=== PATIENT | female | born 1990 | race Caucasian/White ===

== ENCOUNTER 2016-08-16 19:18 | Emergency (ER) | payer BC, OTHER ==
[~2016-08-16] VITALS: Ht 172.7 cm; Wt 136.1 kg
--- NOTE | 2016-08-16 20:03 | ED Fall/Injury ---
General Chief Complaint: Trauma-Non Activation Stated Complaint: FALL/LEFT ARM INJURY Nursing Triage Note: FALL DOWN APPROX. 3 STEPS, C/O LEFT SHOULDER/UPPER ARM PAIN. DENIES OTHER INJURY/LOC. Source: patient Exam Limitations: no limitations History of Present Illness Time seen by provider: 20:03 Initial Comments 25-year-old female patient presents to the emergency department with complaints of left shoulder and left proximal arm pain after slipping on the ice and falling down 3 stairs. reports the left arm caught on a step above/behind her. Also c/o left arm tingling and discoloration. Denies hitting her head or loss of consciousness. Location Injury Occurred: WORK Occurred: this evening Injuries/Pain Location: upper extremity Context: slipped Loss of Consciousness: no loss of consciousness Modifying Factors: Improves With Immobilization, Worse With Movement Allergies and Home Medications Allergies Coded Allergies: No Known Drug Allergies (Unverified , 08/16/16) Home Medications Tramadol HCl 50 Mg Tablet #30 1-2 TAB PO Q4H PRN PRN PAIN Prescribed by: ARTI PAZ on 08/16/160 Constitutional: no symptoms reported Eyes: No Symptoms Reported Ears, Nose, Mouth, Throat: no symptoms reported Respiratory: No cough, No short of breath Cardiovascular: No chest pain, No syncope Gastrointestinal: no symptoms reported Genitourinary: no symptoms reported Musculoskeletal: see HPINo back pain, joint pain joint swelling muscle painNo neck pain Skin: see HPI change in colorNo lumps Psychiatric/Neurological: See HPIDenies Headache, Denies Numbness, Paresthesia Tingling All Other Systems Reviewed Negative Unless Noted: Yes (Negative excepted noted.) Past Qazmiej-Zxulks-Dkfkes Hx Patient Social History Alcohol Use: Denies Use Recreational Drug Use: No Smoking Status: Never a Smoker Recent Foreign Travel: No Contact w/Someone Who Travel: No Recent Infectious Disease Expo: No Recent Hopitalizations: No Physical Abuse Screen: No Sexual Abuse: No Immunizations Up To Date Tetanus Booster (TDap): Less than 5yrs PED Vaccines UTD: Yes Seasonal Allergies Seasonal Allergies: No Surgeries HX Surgeries: No Respiratory Hx Respiratory Disorders: No Cardiovascular Hx Cardiac Disorders: No Neurological Hx Neurological Disorders: No Reproductive System : No Hx Reproductive Disorders: No Genitourinary Hx Genitourinary Disorders: No Gastrointestinal Hx Gastrointestinal Disorders: No Musculoskeletal Hx Musculoskeletal Disorders: No Endocrine Hx Endocrine Disorders: No HEENT HX ENT Disorders: No Cancer Hx Cancer: No Psychosocial Hx Psychiatric Problems: No Integumentary HX Skin/Integumentary Disorder: No Blood Transfusions Hx Blood Disorders: No Adverse Reaction to a Blood Tr: No Reviewed Nursing Assessment Reviewed/Agree w Nursing PMH: Yes Family Medical History Significant Family History: No Pertinent Family Hx Physical Exam Vital Signs Capillary Refill : Less Than 3 Seconds General Appearance: WD/WN no apparent distress HEENT: PERRL/EOMI pharynx normal other (normocephalic, atraumatic) Neck: non-tender full range of motion supple normal inspection Cardiovascular: normal peripheral pulses regular rate, rhythm no murmur Respiratory: lungs clear normal breath sounds no respiratory distress other ( left clavicular tenderness without swelling or ecchymosis.) Peripheral Pulses: 2+ Radial Pulses (R), 2+ Radial Pulses (L) Back: normal inspection no vertebral tenderness Extremities: pelvis stable slow capillary refill ((4-5 seconds).) other (soft tissue and bony tenderness of the shoulder (greatest tenderness posteriorly) and proximal bicep. (+) swelling of the left shoulder. Decreased ROM. ) Neurologic/Psychiatric: alert normal mood/affect oriented x 3 other ( decreased sensation left lateral hand.) Skin: normal color (normal color with slow capillary refill of the left hand. ) warm/dry Alexander Coma Score Best Eye Response: (4) Open Spontaneously Best Verbal Response: (5) Oriented Best Motor Response: (6) Obeys Commands Trista Total: 15 Progress/Results/Core Measures Results/Orders My Orders Orders-ARTI PAZ PA Clavicle, Left (08/16/16 19:45) Humerus, Left, 2 Views (08/16/16 19:45) Saline Lock/Iv-Start (08/16/16 20:22) Ct Angio Ext Upper Left W (08/16/16 20:22) Iohexol Injection (Omnipaque 350 Mg/Ml 1 (08/16/16 20:30) Ns (Ivpb) (Sodium Chloride 0.9% Ivpb Bag (08/16/16 20:30) Padded Arm Sling Medium (08/16/16 22:11) Rx-Tramadol Hcl (Rx-Ultram) (08/16/16 22:11) Medications Given in ED Vital Signs/I&O Blood Pressure Mean: 131 Diagnostic Imaging Diagonstic Imaging: Xray Plain Films/CT/US/NM/MRI: other (clavicle) Comments FINDINGS: The left clavicle appears unremarkable without evidence of fracture. The acromioclavicular joint appears unremarkable. There is, however, ill- defined lucency through the acromion process, and a subtle nondisplaced acromial process fracture cannot be entirely excluded. IMPRESSION: Possible fracture through the acromion process of the scapula. No additional abnormality is seen. Report was called to [facility] in the [facility] ER at 8:05 p.m., by ariella. Dictated by: Dictated on workstation # [id number] Reviewed: Reviewed by Me (radiology report reviewed by me) Diagonstic Imaging: Xray Plain Films/CT/US/NM/MRI: other (left humerus) Comments FINDINGS: Two views of the left humerus are obtained. No acute fracture, malalignment or osseous destructive process is seen. IMPRESSION: Negative left humerus Dictated by: Dictated on workstation # [id number] Reviewed: Reviewed by Me (radiology report reviewed by me) Diagonstic Imaging: CT Plain Films/CT/US/NM/MRI: other (angiography left upper extremity) Comments FINDINGS: The exam is essentially nondiagnostic due to poor contrast bolus and a enlarge amount of noise artifact from patient body habitus. There is very little luminal opacification of the left subclavian artery and axillary artery. The brachial artery is faintly visualized. Beyond this, the vessels are difficult to ascertain. While no significant vascular disruption is suspected, evaluation again is significantly limited. No osseous abnormality is seen. IMPRESSION: No acute abnormality is demonstrated; however, the exam is extremely limited and essentially nondiagnostic for vascular injury in the right upper extremity due to poor contrast bolus and patient body habitus. Dictated by: Dictated on workstation # [id number] Reviewed: Reviewed by Me (radiology report reviewed by me) Departure Communication Progress Notes 2014 radiology results discussed with the patient and family present in the room. Patient continues to have slow capillary refill of the left hand. Proceed with CT angiography left upper extremity to rule out vascular injury. 2200 2 results discussed with the patient. Patient does show improvement and capillary refill at the time of discussion. Refill now less than 3 seconds of the left hand. Patient was placed in a arm sling. Instructed to follow-up with Dr. Gentile as an outpatient for a recheck and further management. Patient to call tomorrow morning for appointment time. All return precautions were discussed with the patient as described in the discharge instructions of this report. Patient voices understanding and agrees with the treatment plan. Patient case discussed with Dr. Hamilton, he agrees with the plan of care. Impression Impression: Primary Impression: Acromial process of scapula fracture Qualified Code: S42.125A - Nondisplaced fracture of acromial process, left shoulder, initial encounter for closed fracture Additional Impression: Brachial plexus injury, left Qualified Code: S14.3XXA - Injury of brachial plexus, initial encounter Disposition: HOME, SELF-CARE Condition: Improved Departure-Patient Inst. Decision time for Depature: 22:04 Referrals: ARPAN MOYER MD (PCP/Family) Primary Care Physician Patient Instructions: Burners or Stingers (DC), Shoulder Blade Fracture (DC) Add. Discharge Instructions: All discharge instructions reviewed with patient and/or family. Voiced understanding. Medications as instructed. Tylenol Extra Strength over-the- counter as directed for pain. No ibuprofen or Aleve. Arm sling as instructed. Right arm activities only until released by your orthopedic surgeon. Ice pack for 20 minute intervals as needed for pain. Follow-up Dr. Gentile as an outpatient for recheck in the next 7 days. Call tomorrow morning for appointment time. Return to the emergency department for worsened pain, numbness, weakness, discoloration, or any other concerns. Scripts Tramadol HCl 50 Mg Tablet1-2 Tab PO Q4H PRN PAIN #30 TAB Ref 0 Prov:ARTI PAZ 08/16/16 ARTI PAZ Aug 16, 2016 20:03
--- NOTE | 2016-08-16 20:07 | Diagnostic Imaging Report ---
INDICATION: Injury. COMPARISON: None. EXAMINATION: Two views of the left clavicle were obtained. FINDINGS: The left clavicle appears unremarkable without evidence of fracture. The acromioclavicular joint appears unremarkable. There is, however, ill-defined lucency through the acromion process, and a subtle nondisplaced acromial process fracture cannot be entirely excluded. IMPRESSION: Possible fracture through the acromion process of the scapula. No additional abnormality is seen. Report was called to Aristeo in the [facility], [place], operated by [facility] ER at 8:05 p.m., by ariella. Dictated by: Dictated on workstation # [id number]
--- NOTE | 2016-08-16 20:07 | Diagnostic Imaging Report ---
INDICATION: Fall. Pain. COMPARISON: None FINDINGS: Two views of the left humerus are obtained. No acute fracture, malalignment or osseous destructive process is seen. IMPRESSION: Negative left humerus Dictated by: Dictated on workstation # [id number]
[2016-08-16] MEDS ORDERED: IOHEXOL 350 MG/ML 150 ML (OMNIPAQUE 350) VIAL IV ONE (20:30)
[2016-08-16] MEDS ORDERED: NS 100 ML (IVPB) BAG IV ONE (20:30)
--- NOTE | 2016-08-16 21:10 | Diagnostic Imaging Report ---
INDICATION: Injury. Numbness and decreased temperature of the upper extremity. COMPARISON: None. EXAMINATION: CTA of the left upper extremity with contrast. FINDINGS: The exam is essentially nondiagnostic due to poor contrast bolus and a enlarge amount of noise artifact from patient body habitus. There is very little luminal opacification of the left subclavian artery and axillary artery. The brachial artery is faintly visualized. Beyond this, the vessels are difficult to ascertain. While no significant vascular disruption is suspected, evaluation again is significantly limited. No osseous abnormality is seen. IMPRESSION: No acute abnormality is demonstrated; however, the exam is extremely limited and essentially nondiagnostic for vascular injury in the right upper extremity due to poor contrast bolus and patient body habitus. Dictated by: Dictated on workstation # [id number]
[2016-08-16] MEDS ORDERED: TRAM50TA2 PO (22:10)
[2016-08-16] MEDS ORDERED: RX-TRAMADOL 50 MG (ULTRAM) TAB PPK#4 PO STA (22:11)
[2016-08-16 22:25] VITALS: BP 132/104
== END 2016-08-16 22:18 | disposition home or self-care (01) ==
LOC: EDUNIT# 19:18 → ER 19:22
DX: S42.125A Nondisplaced fracture of acromial process, left shoulder, initial encounter for closed fracture (principal); S14.3XXA Injury of brachial plexus, initial encounter; W10.9XXA Fall (on) (from) unspecified stairs and steps, initial encounter; Y99.8 Other external cause status
CPT/HCPCS: 73000; 73060; 73206